=== PATIENT | female | born 1970 | race Two or more races ===

== ENCOUNTER → 2022-02-10 09:58 | Outpatient (BNVA) | payer OTHER, SELFPAY | PROVIDERS: Visit Provider Nurse Practitioner Family | DX: G47.33 Obstructive sleep apnea (adult) (pediatric) (principal); R40.0 Somnolence; R06.83 Snoring | CPT/HCPCS: 99202 ==

== ENCOUNTER → 2022-03-20 10:41 | Outpatient (REF) | payer OTHER, SELFPAY | LOC: HO.SL 10:41 | PROVIDERS: Visit Provider Nurse Practitioner Family | DX: G47.33 Obstructive sleep apnea (adult) (pediatric) (principal); R06.83 Snoring; R40.0 Somnolence | CPT/HCPCS: 95806 ==

== ENCOUNTER → 2022-04-20 10:49 | Outpatient (BNVA) | payer OTHER, SELFPAY | PROVIDERS: Visit Provider Nurse Practitioner Family | DX: G47.33 Obstructive sleep apnea (adult) (pediatric) (principal) | CPT/HCPCS: 99212 ==

== ENCOUNTER → 2022-06-23 10:34 | Outpatient (BNVA) | payer OTHER, SELFPAY | PROVIDERS: Visit Provider Nurse Practitioner Family | DX: G47.33 Obstructive sleep apnea (adult) (pediatric) (principal); Z99.89 Dependence on other enabling machines and devices | CPT/HCPCS: 99212 ==

== ENCOUNTER 2022-12-14 11:38 | Outpatient (AMB) | payer MEDICAID, SELFPAY ==
[2022-12-14 11:42] VITALS: BP 124/66; PULSE 76; O2SAT 96; BMI 43.7
--- NOTE | 2022-12-14 11:42 | A.OFFVIS_ITS ---
Intake Vital Signs 12/14/22 11:42 Height 5 ft 2 in Weight 239 lb BMI 43.7 BP 124/66 Blood Pressure Location Rt brachial Position Sitting Pulse 76 Pulse Source Pulse Oximeter Pulse Oximetry (%) 96 Oxygen Delivery Method Room Air Intake Visit Reasons: 6m f/u sleep apnea - Confirmed Intake Note: Pt presents as a 6 month f/u for sleep apnea. Reference Archivist Required: No Allergies pollen extracts Allergy (Severe, Verified 12/14/22 11:47) Hives opioid Allergy (Severe, Uncoded 12/14/22 11:47) Anaphylaxis Banans Allergy (Unknown, Uncoded 12/14/22 11:47) Unknown HPI HPI Comments History of Present Illness Details 52 y/o female patient presents for follow up of CULLEN on CPAP. Pt reports that she was depressed and did not use CPAP often. She restart using CPAP lately and sleeps well with CPAP, and daytime tiredness has improved. CPAP compliance and therapy response (09/10/22-12/08/22) reviewed. She is on APAP [id number]. The usage days 20 days and average usage hours 4 hours 50 min. Mean pressure is 7.5 and highest average pressure is 8.2. The residual AHI was 1.2. She is followed by wt management at [facility]. [facility] Surgical History Hx of tubal ligation Family History Mother HTN (hypertension) Diabetes Heart disease Arthritis Father Diabetes Asthma Social History (Updated 12/14/22 @ 11:48 by Annalisa Erickson CMA) Household Members: Family Alcohol intake: never Patient Tobacco Use Status: Never used Tobacco Review of Systems Const All systems reviewed & are unremarkable except as noted in HPI and below ENT Reports Normal hearing present Neuro Reports Normal hearing present Physical Exam Vital Signs: Last Vital Signs Pulse 76 12/14/22 11:42 BP 124/66 12/14/22 11:42 Pulse Ox 96 12/14/22 11:42 Oxygen Delivery Method Room Air 12/14/22 11:42 BMI result Body Mass Index 43.7 Const General: cooperative Nutritional Appearance: obese Orientation/consciousness: patient oriented x3 Neck Neck: Yes full ROM and Yes supple Resp Effort & Inspection: normal respiratory effort and able to speak in complete sentences Neuro General: patient oriented x3, gait normal and moves all extremities Cranial nerves: Yes Bilaterally intact EOM present, Yes Normal facial strength present, Yes Midline tongue present, Yes Symmetric palate elevation present, Yes Normal hearing present, Yes Ability to bilaterally rotate head present and Yes Ability to bilaterally elevate shoulders present Cognition (Neuro): normal cognition Gait exam (Neuro): Normal gait present Motor exam (neuro): 5/5 motor strength present throughout Assessment & Plan Assessment & Plan (1) CULLEN (obstructive sleep apnea): Comment: The mild degree of sleep apnea. The AHI was 8/hr and oxygen twila was 75%. Pt is on APAP 5-2cmH2O. Code(s): G47.33 - Obstructive sleep apnea (adult) (pediatric) Plan Continue to use APAP 6-12cmHO. Stressed compliance. use CPAP nightly and more than 4 hours. Advised patient to clean mask and tubing regularly, change filter routinely. Wt reduction advised. Coding Level of Care Code Est Pt Level 3 (87075) Diagnoses CULLEN (obstructive sleep apnea) G47.33
== END 2022-12-14 12:02 | disposition home or self-care (01) ==
PROVIDERS: Visit Provider Nurse Practitioner Family
DX: G47.33 Obstructive sleep apnea (adult) (pediatric) (principal)
CPT/HCPCS: 99213

== ENCOUNTER → 2022-12-14 11:38 | Outpatient (BNVA) | payer MEDICAID, SELFPAY | PROVIDERS: Visit Provider Nurse Practitioner Family | DX: G47.33 Obstructive sleep apnea (adult) (pediatric) (principal) | CPT/HCPCS: 99212; 99213 ==

== ENCOUNTER 2023-02-23 10:47 | Outpatient (AMB) | payer MEDICAID, SELFPAY ==
--- NOTE | 2023-02-23 10:51 | MHC.OFFVIS ---
Intake Vital Signs 02/23/23 10:55 Height 5 ft 2 in Weight 241 lb BMI 44.1 BP 112/92 H Blood Pressure Location Lt brachial Position Left Lateral Pulse 81 Pulse Source Pulse Oximeter Pulse Oximetry (%) 98 Oxygen Delivery Method Room Air Intake Visit Reasons: 2 mnts f/u for sleep - Confirmed Intake Note: F/U sleep Store Team Member Required: No Allergies pollen extracts Allergy (Severe, Verified 02/23/23 10:51) Hives opioid Allergy (Severe, Uncoded 02/23/23 10:51) Anaphylaxis Banans Allergy (Unknown, Uncoded 02/23/23 10:51) Unknown HPI HPI Comments History of Present Illness Details 52 y/o female patient presents for follow up of CULLEN on CPAP. Pt reports that she had difficulty using CPAP due to sore throat and nasal congestion. She restart using CPAP but she feels the pressure too high, cause nose pain dryness and can't sleep well with it. CPAP compliance and therapy response (01/21/23-02/19/23) reviewed. She is on APAP [id number]. The usage days 20 days and average usage hours 4 hours 40 min. Mean pressure is 7.5 and highest average pressure is 8.5 The residual AHI was 1.3/hr. She is followed by wt management at [facility] and plans to have bariatric surgery. Pt's baseline home sleep study result was significant for mild degree of sleep apnea. The AHI was 7/hr and oxygen twila was 75%. [facility] Surgical History Hx of tubal ligation Family History Mother HTN (hypertension) Diabetes Heart disease Arthritis Father Diabetes Asthma Social History (Updated 02/23/23 @ 10:54 by Nohelia Ramos CMA) Household Members: Family Alcohol intake: never Patient Tobacco Use Status: Never used Tobacco Review of Systems Const All systems reviewed & are unremarkable except as noted in HPI and below ENT Reports Normal hearing present Neuro Reports Normal hearing present Physical Exam Vital Signs: Last Vital Signs Pulse 81 02/23/23 10:55 BP 112/92 H 02/23/23 10:55 Pulse Ox 98 02/23/23 10:55 Oxygen Delivery Method Room Air 02/23/23 10:55 BMI result Body Mass Index 44.1 Const General: cooperative Nutritional Appearance: obese Orientation/consciousness: patient oriented x3 Neck Neck: Yes full ROM and Yes supple Resp Effort & Inspection: normal respiratory effort and able to speak in complete sentences Neuro General: patient oriented x3, gait normal and moves all extremities Cranial nerves: Yes Bilaterally intact EOM present, Yes Normal facial strength present, Yes Midline tongue present, Yes Symmetric palate elevation present, Yes Normal hearing present, Yes Ability to bilaterally rotate head present and Yes Ability to bilaterally elevate shoulders present Cognition (Neuro): normal cognition Gait exam (Neuro): Normal gait present Motor exam (neuro): 5/5 motor strength present throughout Assessment & Plan Assessment & Plan (1) CULLEN (obstructive sleep apnea): Comment: The mild degree of sleep apnea. The AHI was 8/hr and oxygen twila was 75%. Pt is on APAP 5-2cmH2O. Code(s): G47.33 - Obstructive sleep apnea (adult) (pediatric) Plan Pressure adjusted to APAP 6-10cmHO. Stressed compliance. use CPAP nightly and more than 4 hours. Advised patient to clean mask and tubing regularly, change filter routinely. New mask fitting and new pressure prescription given to patient. Pt was diagnosed with mild degree of sleep apnea. If patient is not tolerated CPAP, bariatric surgery and wt reduction will help to treat sleep apnea. Coding Level of Care Code Est Pt Level 3 (43806) Diagnoses CULLEN (obstructive sleep apnea) G47.33
[2023-02-23 10:55] VITALS: BP 112/92; PULSE 81; O2SAT 98; BMI 44.1
== END 2023-02-23 11:25 | disposition home or self-care (01) ==
PROVIDERS: PCP Physician Assistant; Visit Provider Nurse Practitioner Family
DX: G47.33 Obstructive sleep apnea (adult) (pediatric) (principal)
CPT/HCPCS: 99213

== ENCOUNTER → 2023-02-23 10:47 | Outpatient (BNVA) | payer MEDICAID, SELFPAY | PROVIDERS: PCP Physician Assistant; Visit Provider Nurse Practitioner Family | DX: G47.33 Obstructive sleep apnea (adult) (pediatric) (principal) | CPT/HCPCS: 99212 ==

== ENCOUNTER 2023-03-20 09:32 | Outpatient (AMB) | payer MEDICAID, SELFPAY ==
--- NOTE | 2023-03-20 09:37 | A.OFFVIS_ITS ---
Intake Vital Signs 03/20/23 09:41 Weight 239 lb 6 oz BP 128/82 Blood Pressure Location Lt brachial Position Sitting Pulse 70 Pulse Source Pulse Oximeter Pulse Oximetry (%) 98 Oxygen Delivery Method Room Air Intake Visit Reasons: 1 mnts f/u for sleep - Conf Intake Note: F/U sleep Husbandry Person Required: No Allergies pollen extracts Allergy (Severe, Verified 03/20/23 09:38) Hives opioid Allergy (Severe, Uncoded 03/20/23 09:38) Anaphylaxis Banans Allergy (Unknown, Uncoded 03/20/23 09:38) Unknown HPI HPI Comments History of Present Illness Details 52 y/o female patient presents for foll ow up of CULLEN on CPAP. Pt reports she has received a new CPAP tubing and no rainout. The CPAP pressures was also changed to 6-10 cmH2O and she is good with it. Uses mirtazipine as needed for anxiety attack. She sleeps better and daytime sleepiness has improved. CPAP compliance and therapy response (02/19/23-03/19/23) reviewed. She is on APAP [id number]. The usage days 62% and average usage hours 5 hours 26 min. The max pressure is 8 and the residual AHI was 1.4/hr. She is followed by wt management at [facility] and plans to have bariatric surgery. [facility] Surgical History Hx of tubal ligation Family History Mother HTN (hypertension) Diabetes Heart disease Arthritis Father Diabetes Asthma Social History (Updated 03/20/23 @ 09:41 by Nohelia Ramos CMA) Household Members: Family Alcohol intake: never Patient Tobacco Use Status: Never used Tobacco Review of Systems Const All systems reviewed & are unremarkable except as noted in HPI and below ENT Reports Normal hearing present Neuro Reports Normal hearing present Physical Exam Vital Signs: Last Vital Signs Pulse 70 03/20/23 09:41 BP 128/82 03/20/23 09:41 Pulse Ox 98 03/20/23 09:41 Oxygen Delivery Method Room Air 03/20/23 09:41 Const General: cooperative Nutritional Appearance: obese Orientation/consciousness: patient oriented x3 Neck Neck: Yes full ROM and Yes supple Resp Effort & Inspection: normal respiratory effort and able to speak in complete sentences Neuro General: patient oriented x3, gait normal and moves all extremities Cranial nerves: Yes Bilaterally intact EOM present, Yes Normal facial strength present, Yes Midline tongue present, Yes Symmetric palate elevation present, Yes Normal hearing present, Yes Ability to bilaterally rotate head present and Yes Ability to bilaterally elevate shoulders present Cognition (Neuro): normal cognition Gait exam (Neuro): Normal gait present Motor exam (neuro): 5/5 motor strength present throughout Assessment & Plan Assessment & Plan (1) CULLEN (obstructive sleep apnea): Comment: The mild degree of sleep apnea. The AHI was 8/hr and oxygen twila was 75%. Pt is on APAP 5-2cmH2O. Code(s): G47.33 - Obstructive sleep apnea (adult) (pediatric) Plan Pressure adjusted to APAP 6-10cmHO. Stressed compliance. use CPAP nightly and more than 4 hours. Advised patient to clean mask and tubing regularly, change filter routinely. Coding Level of Care Code Est Pt Level 3 (18726) Diagnoses CULLEN (obstructive sleep apnea) G47.33
[2023-03-20 09:41] VITALS: BP 128/82; PULSE 70; O2SAT 98
== END 2023-03-20 09:56 | disposition home or self-care (01) ==
PROVIDERS: PCP Physician Assistant; Visit Provider Nurse Practitioner Family
DX: G47.33 Obstructive sleep apnea (adult) (pediatric) (principal)
CPT/HCPCS: 99213

== ENCOUNTER → 2023-03-20 09:32 | Outpatient (BNVA) | payer MEDICAID, SELFPAY | PROVIDERS: PCP Physician Assistant; Visit Provider Nurse Practitioner Family | DX: G47.33 Obstructive sleep apnea (adult) (pediatric) (principal) | CPT/HCPCS: 99212 ==